=== PATIENT | male | born 1995 | race African-American/Black ===

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

== ENCOUNTER 2017-03-21 20:12 | Emergency (ER) | payer MEDICAID ==
[~2017-03-21] VITALS: Ht 167.6 cm; Wt 63.5 kg
[~2017-03-21 20:12] MED LIST: ACETAMINOPHEN-1 EAC1 ORAL; ALBUTEROL2.5 MG/3 M INH; PREDNISONE20 MG ORAL; PROAIR HFA8.5 GM INH; VENTOLIN HFA18 GM INH
[2017-03-21 20:40] VITALS: BP 118/77
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
[2017-03-21] MEDS ORDERED: Tetanus/Diptheria/Pertussis Vaccine 0.5ml Syr IM ONE (20:45)
[2017-03-21] MEDS ORDERED: Lidocaine 1% Plain 30 ml INJ ONE (21:00)
[2017-03-21 21:01] LABS: EOSINOPHILS % (AUTO) 0.7 % (0.0-3.0); LYMPHOCYTES % (AUTO) 11.4 % (20.0-45.0); MEAN CORPUSCULAR HGB CONC 31.9 G/DL (32.0-36.0); MEAN CORPUSCULAR VOLUME 94 FL (80-99); MEAN PLATELET VOLUME 7.7 FL (6.5-10.1); MONOCYTES % (AUTO) 3.4 % (1.0-10.0); NEUTROPHILS % (AUTO) 83.5 % (45.0-75.0); PLATELET COUNT 168 K/UL (150-450); RED BLOOD COUNT 4.82 M/UL (4.70-6.10); RED CELL DISTRIBUTION WIDTH 11.1 % (11.6-14.8); WHITE BLOOD COUNT 15.9 K/UL (4.8-10.8)
[2017-03-21 21:11] LABS: ANION GAP 7 mmol/L (5-15); CALCIUM 9.1 MG/DL (8.5-10.1); CARBON DIOXIDE 26 MMOL/L (21-32); CHLORIDE 104 MMOL/L (98-107); CREATININE 1.1 MG/DL (0.55-1.30); GLOMERULAR FILTRATION RATE > 60 mL/min (>60); POTASSIUM 5.2 MMOL/L (3.5-5.1); SODIUM 137 MMOL/L (136-145)
[2017-03-21 21:15] LABS: ALANINE AMINOTRANSFERASE 23 U/L (12-78); ASPARTATE AMINO TRANSFERASE 58 U/L (15-37); LIPASE 282 U/L (73-393); TOTAL PROTEIN 7.7 G/DL (6.4-8.2)
[2017-03-21 21:48] LABS: APPEARANCE,URINE CLEAR; KETONES,URINE NEGATIVE (NEGATIVE); LEUKOCYTE ESTERASE ,URINE NEGATIVE (NEGATIVE); NITRITE,URINE NEGATIVE (NEGATIVE); PH,URINE 6 (4.5-8.0); PROTEIN,URINE NEGATIVE (NEGATIVE); UROBILINOGEN,URINE NORMAL MG/DL (0.0-1.0)
[2017-03-21 23:25] VITALS: BP 111/67
--- NOTE | 2017-03-22 09:20 | Diagnostic Imaging Report ---
Indication: Abdominal pain Technique: Continuous helical transaxial imaging of the abdomen and pelvis was obtained from the lung bases to the pubic symphysis during intravenous contrast administration. Coronal 2-D reformats were also obtained. Study obtained in a Siemens sensation [address] Automatic Exposure Control was utilized. Total Dose length Product (DLP): [address] Dose Index Volume (CTDIvol): 0.15, 9.57 mGy Comparison: None Findings: The lung bases are clear. Appendix is absent. No free fluid identified. The bladder is relatively nondistended. No evidence of bowel obstruction or free air. In the pubic region anterior to the right inguinal canal and within the subcutaneous fat just above the penis there is a small focus of air. Suspect is a surgical in nature. Some of the air appears to extend into the visualized part of the right scrotum. Please correlate clinically. Impression: Air noted in the subcutaneous fat right scrotal region and pubic area. Findings presumably on the basis of recent surgery or trauma. Please correlate clinically. Negative examination otherwise. [facility] has communicated the preliminary results to the Emergency Department. Their findings are largely concordant with this report. The CT scanner at [facility] is accredited by the [employer] and the scans are performed using dose optimization techniques as appropriate to a performed exam including Automatic Exposure control.
--- NOTE | 2017-03-22 12:05 | Diagnostic Imaging Report ---
Indication: pain Findings: 3 views of the left hand were obtained. Normal alignment is demonstrated. No acute fractures, erosions, or periosteal reaction are seen. Soft tissues are unremarkable. Impression: No acute findings.
== END 2017-03-21 23:25 | disposition home or self-care (01) ==
LOC: EMR 21:08
DX: S61.211A Laceration without foreign body of left index finger without damage to nail, initial encounter (principal); Y04.0XXA Assault by unarmed brawl or fight, initial encounter; Y92.89 Other specified places as the place of occurrence of the external cause; Z23 Encounter for immunization; R10.32 Left lower quadrant pain; J45.909 Unspecified asthma, uncomplicated; Z91.010 Allergy to peanuts; Z90.49 Acquired absence of other specified parts of digestive tract
CPT/HCPCS: 12001; 36415; 73130; 74177; 80053; 81003; 83690; 85025; 90471; 90715; 99284; J2001; Q9967; Z7502

== ENCOUNTER 2017-05-13 12:51 | Emergency (ER) | payer MEDICAID ==
[~2017-05-13] VITALS: Ht 175.3 cm; Wt 65.8 kg
[2017-05-13] MEDS ORDERED: DiphenhydrAMINE 50mg/ml Inj IM ONE (13:15)
[2017-05-13] MEDS ORDERED: Ketorolac 60mg Inj IM ONE (13:15)
[2017-05-13] MEDS ORDERED: IBUPROFEN600 MG ORAL (14:43)
[2017-05-13 14:50] VITALS: BP 110/78
[2017-05-13 14:55] VITALS: BP 110/78
--- NOTE | 2017-05-13 19:13 | Emergency Room Report ---
History of Present Illness General Chief Complaint: Headache Source: Patient Present Illness HPI The patient is a 21-year-old male who denies any medical history presenting for headache. Pain has been an 8/10 dull ache primarily to the back of his head. Worse with activity. He has not taken any medication for the pain. He denies other symptoms including neck pain or stiffness, fever, chills, cough, blurred vision, dizziness Allergies: Coded Allergies: PEANUT (Verified Allergy, Unknown, 03/21/17) Patient History Past Medical History: see triage record Pertinent Family History: none Reviewed Nursing Documentation: PMH: Agreed, PSxH: Agreed Nursing Documentation-PMH Hx Asthma: Yes Review of Systems All Other Systems: negative except mentioned in HPI Physical Exam Vital Signs Date Time Temp Pulse Resp B/P (MAP) Pulse Ox O2 Delivery O2 Flow Rate FiO2 05/13/17 12:57 98.1 71 20 119/83 97 Room Air Sp02 EP Interpretation: reviewed, normal General Appearance: no apparent distress, alert, GCS 15, non-toxic Head: normocephalic, atraumatic Eyes: bilateral eye normal inspection, bilateral eye PERRL Neck: full range of motion, no bony tend, supple/symm/no masses Respiratory: chest non-tender, lungs clear, normal breath sounds, speaking full sentences Cardiovascular #1: regular rate, rhythm, no edema Musculoskeletal: back normal, gait/station normal, normal range of motion, non- tender Neurologic: alert, oriented x3, responsive, motor strength/tone normal, sensory intact, speech normal Psychiatric: judgement/insight normal, memory normal, mood/affect normal, no suicidal/homicidal ideation Skin: normal color, no rash, warm/dry, well hydrated Medical Decision Making PA Attestation Dr. Johnson is my supervising physician. Patient management was discussed with my supervising physician Diagnostic Impression: Primary Impression: Headache Qualified Codes: R51 - Headache ER Course The patient is a 21-year-old male who denies any medical history presenting for headache. Differential diagnoses include but not limited to Migraine, tension headache, meningitis, AVM, CVA, SAH PE: No apparent distress. PERRL No TTP over maxillary or frontal sinuses. Lungs CTA bilat. No wheezing. No accessory muscle use. Heart: RRR, no abnormal heart sounds Ears: external auditory canal clear. Non erythematous. Bilat TM intact. Cone of light present bilat. No bulging of TM. No serous fluid seen. No tonsillar exudate. Uvula midline.Oropharynx non erythematous Neck soft and supple. FulL AROM intact The patient is given IM Toradol, Zofran, and Benadryl. he states that pain has significantly decreased. He is now more relaxed. He'll be discharged home with similar medication. ER precautions are given Last Vital Signs Date Time Temp Pulse Resp B/P (MAP) Pulse Ox O2 Delivery O2 Flow Rate FiO2 05/13/17 14:55 98.1 80 20 110/78 97 Room Air Status: improved Disposition: HOME, SELF-CARE Condition: Improved Scripts Ibuprofen* (MOTRIN*) 600 Mg Tablet 600 MG ORAL Q8H Y for For Pain, #30 TAB 0 Refills Prov: CLIFF ALBERTO 05/13/17 Referrals: [facility] (PCP) Patient Instructions: General Headache Without Cause Additional Instructions: I discussed my findings with the patient. All questions and concerns have been answered. Treatment and medication compliance have been addressed. I advised the patient that they need to follow up with PMD in 3-5 days. Return to ED if symptoms worsen, new symptoms arise, or if needed for any reason. Patient verbalized understanding of discharge instructions. CLIFF ALBERTO May 13, 2017 19:13
== END 2017-05-13 14:55 | disposition home or self-care (01) ==
LOC: EMR 13:30
DX: R51 Headache (principal); J45.909 Unspecified asthma, uncomplicated; Z91.010 Allergy to peanuts
CPT/HCPCS: 96372; 99283; J1200; J2405

== ENCOUNTER 2017-08-26 00:06 | Emergency (ER) | payer MEDICAID ==
[~2017-08-26] VITALS: Ht 167.6 cm; Wt 77.1 kg
[~2017-08-26 00:06] MED LIST changes: +IBUPROFEN600 MG ORAL
[2017-08-26] MEDS ORDERED: NYSTATIN15 GM TOPIC (01:28)
[2017-08-26] MEDS ORDERED: IBUPROFEN600 MG ORAL (01:28)
[2017-08-26 03:00] VITALS: BP_SYST 135; BP_SYST 145; BP_DIAS 72; BP_DIAS 76
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
== END 2017-08-26 03:01 | disposition home or self-care (01) ==
LOC: EMR 00:30
DX: S09.90XA Unspecified injury of head, initial encounter (principal); N48.1 Balanitis; J45.909 Unspecified asthma, uncomplicated; Z91.010 Allergy to peanuts; W22.09XA Striking against other stationary object, initial encounter; Y92.9 Unspecified place or not applicable
CPT/HCPCS: 70450; 96372; 99284; J0780

== ENCOUNTER 2019-01-05 21:23 | Emergency (ER) | payer MEDICAID ==
[~2019-01-05] VITALS: Ht 177.8 cm; Wt 72.6 kg
[~2019-01-05 21:23] MED LIST changes: +NYSTATIN15 GM TOPIC
--- NOTE | 2019-01-05 21:38 | NUR ---
ED Nurse Note: Pt walked in due to sore throat and difficulty in swallowing. Also c/o right side facial pain jeancarlos goes to ear. AAO x4, and ambulatory and speaks in full sentences.
[2019-01-05] MEDS ORDERED: LIDOCAINE VISC100 ML ORAL (22:06)
[2019-01-05] MEDS ORDERED: AMOXICILLI250 MG/5 M ORAL (22:06)
--- NOTE | 2019-01-05 22:09 | Emergency Room Report ---
History of Present Illness General Chief Complaint: Upper Respiratory Illness Present Illness HPI Patient is 23-year-old male presents after increased sore throat for the past 3 days. Patient reports having some increased difficulty with swallowing. He denies any fever. He reports of increased right-sided ear pain as well as right -sided neck discomfort. He denies any vomiting. He denies any severe pain to his neck. He denies any severe headache. He had not been vomiting. He denies any current cough. Ports smoking marijuana. He denies any recent smoking. Allergies: Coded Allergies: PEANUT (Verified Allergy, Unknown, 03/21/17) Patient History Past Medical History: see triage record Reviewed Nursing Documentation: PMH: Agreed; PSxH: Agreed Nursing Documentation-PMH Hx Asthma: Yes Review of Systems All Other Systems: negative except mentioned in HPI Physical Exam Vital Signs Date Time Temp Pulse Resp B/P (MAP) Pulse Ox O2 Delivery O2 Flow Rate FiO2 01/05/19 21:28 98.4 69 16 107/69 (82) 97 Room Air General Appearance: well appearing, no apparent distress, alert, GCS 15 Head: normocephalic, atraumatic ENT: hearing grossly normal, normal voice, uvula midline, tonsillar swelling, pharyngeal erythema, tonsillar exudate Neck: full range of motion, supple Respiratory: no respiratory distress, speaking full sentences Cardiovascular #1: normal inspection Gastrointestinal: normal inspection, non tender, soft Musculoskeletal: normal inspection Neurologic: normal inspection, alert, oriented x3, responsive, normal gait Psychiatric: mood/affect normal Skin: no rash Medical Decision Making Diagnostic Impression: Primary Impression: Acute tonsillitis ER Course Patient presented for sore throat. Differential diagnosis included but was not limited to meningitis, exudative tonsillitis, retropharyngeal abscess, epiglottitis, strep pharyngitis. Patient has a benign exam and does not appear to require any imaging or laboratory testing at this time. Patient appears to have a bacterial tonsillitis. There is no evidence of abscess. Patient was advised to gargle with salt water. He will be given prescription for oral antibiotics. He was given medication for symptomatic treatment as well. Patient was advised to continue ibuprofen and to follow-up with his primary care physician for recheck in 2 days. Is advised to return if worse. Last Vital Signs Date Time Temp Pulse Resp B/P (MAP) Pulse Ox O2 Delivery O2 Flow Rate FiO2 01/05/19 21:38 72 19 Room Air 01/05/19 21:28 98.4 107/69 (82) 97 Status: improved Disposition: HOME, SELF-CARE Condition: Stable Scripts Amoxicillin* (AMOXICILLIN*) 250 Mg/5 Ml Susp.recon 500 MG ORAL EVERY 8 HOURS for 7 Days, #210 ML Prov: Monty Cole MD 01/05/19 Lidocaine HCl 2% Viscous (Lidocaine HCl 2% Viscous) 100 Ml Solution 15 ML ORAL QID for pain, #120 ML Prov: Monty Cole MD 01/05/19 Patient Instructions: Tonsillitis, [id number] Monty Cole MD Jan 05, 2019 22:09
[2019-01-05 22:15] VITALS: BP 107/69
[2019-01-05] MEDS ORDERED: Lidocaine 2% Visc 15ml soln ORAL ONE (22:15)
--- NOTE | 2019-01-05 22:15 | NUR ---
ER DISCHARGE NOTE: Patient is cleared to be discharged per ERMD, pt is aox4, on room air, with stable vital signs. pt was given dc and prescription instructions, pt was able to verbalize understanding, pt id band removed without complications. pt is able to ambulate with steady gait. pt took all belongings.
== END 2019-01-05 22:15 | disposition home or self-care (01) ==
LOC: EMR 21:48
DX: J03.90 Acute tonsillitis, unspecified (principal); J45.909 Unspecified asthma, uncomplicated; Z91.010 Allergy to peanuts
CPT/HCPCS: 99282

== ENCOUNTER → 2019-06-29 | Emergency (ER) | payer MEDICAID ==
[~2019-06-29] VITALS: Ht 175.3 cm; Wt 77.1 kg
[~2019-06-29] MED LIST changes: +AMOXICILLI250 MG/5 M ORAL; +DOXYCYCLINE MO100 MG ORAL; +LIDOCAINE VISC100 ML ORAL; +Lidocaine 1% MPF 10mg/ml 5ml INJ ONE
[2019-06-29 12:38] VITALS: BP 121/78
--- NOTE | 2019-06-29 12:40 | NUR ---
ED Nurse Note: pt ambulated to ed to be evaluated for std. per pt, he's been having some 'creamy-like' discharge on reproductive area, pt denies pain nor burning sensation upon urination. placed on bed.
--- NOTE | 2019-06-29 13:09 | Emergency Room Report ---
History of Present Illness General Chief Complaint: Male Urogenital Problems Source: Patient Present Illness HPI 23-year-old male presents to the emergency department complaining of recent contact with an STD. Patient reports that his sexual partner was diagnosed with chlamydia 2 days ago. Patient is seeking treatment at this time. He denies penile discharge, dysuria, hematuria, testicular pain or swelling. Patient denies genital lesions/rashes. He denies swollen tender lymph nodes. Patient denies joint pain, abdominal pain, fevers or chills. Patient denies any significant past medical history. No other aggravating or relieving factors at this time. Allergies: Coded Allergies: PEANUT (Verified Allergy, Unknown, 03/21/17) Patient History Past Medical History: see triage record Past Surgical History: none Pertinent Family History: none Reviewed Nursing Documentation: PMH: Agreed; PSxH: Agreed Nursing Documentation-PMH Past Medical History: No Stated History Hx Asthma: Yes Review of Systems All Other Systems: negative except mentioned in HPI Physical Exam Vital Signs Date Time Temp Pulse Resp B/P (MAP) Pulse Ox O2 Delivery O2 Flow Rate FiO2 06/29/19 12:33 98.2 69 18 121/78 (92) 96 Room Air Sp02 EP Interpretation: reviewed, normal General Appearance: no apparent distress, alert, GCS 15, non-toxic Head: normocephalic, atraumatic Eyes: bilateral eye normal inspection, bilateral eye PERRL ENT: hearing grossly normal, normal voice Neck: full range of motion Respiratory: lungs clear, normal breath sounds, speaking full sentences Cardiovascular #1: regular rate, rhythm Gastrointestinal: normal bowel sounds, non tender, soft, non-distended, no guarding Rectal: deferred Genitourinary: no CVA tenderness, deferred Musculoskeletal: normal range of motion, gait/station normal, non-tender Neurologic: alert, motor strength/tone normal, oriented x3, sensory intact, responsive, speech normal Psychiatric: judgement/insight normal Skin: no rash, normal color Lymphatic: no adenopathy Medical Decision Making PA Attestation Dr. Mcclendon Is my supervising Physician whom patient management has been discussed with. Diagnostic Impression: Primary Impression: Contact with or exposure to venereal diseases ER Course 23-year-old male presents to the emergency department complaining of recent contact with an STD. Patient reports that his sexual partner was diagnosed with chlamydia 2 days ago. Patient is seeking treatment at this time. He denies penile discharge, dysuria, hematuria, testicular pain or swelling. Patient denies genital lesions/rashes. He denies swollen tender lymph nodes. Patient denies joint pain, abdominal pain, fevers or chills. Patient denies any significant past medical history. No other aggravating or relieving factors at this time. Ddx considered but are not limited to UTi , Urethritis, LGV, STI, Stone, Cystitis, prostatitis Vital signs: are WNL, pt. is afebrile H&PE are most consistent with Urethritis ORDERS: - None at this time as pt. sexual partner is positive for chlamydia and is currently on treatment. ED INTERVENTIONS: -250mg Rocephin IM DISCHARGE: At this time pt. is stable for d/c to home. Will provide printed patient care instructions, and any necessary prescriptions. Care plan and follow up instructions have been discussed with the patient prior to discharge. Last Vital Signs Date Time Temp Pulse Resp B/P (MAP) Pulse Ox O2 Delivery O2 Flow Rate FiO2 06/29/19 12:38 98.2 18 121/78 96 Room Air 06/29/19 12:33 69 Disposition: HOME, SELF-CARE Condition: Stable Scripts Doxycycline Monohydrate* (DOXYCYCLINE MONOHYDRATE*) 100 Mg Capsule 100 MG ORAL TWICE A DAY for 7 Days, #14 CAP 0 Refills Prov: Fabienne Theodore 06/29/19 Patient Instructions: Chlamydia, Male Additional Instructions: Take medications as directed. Follow up with a Primary Care Provider in 3-5 days, even if your symptoms have resolved. Return sooner to ED if new symptoms occur, or current symptoms become worse. - Please note that this Emergency Department Report was dictated using [employer] Technology[employer]conciliation clerk technology software, occasionally this can lead to erroneous entry secondary to interpretation by the dictation equipment. Fabienne Theodore Jun 29, 2019 13:09
[2019-06-29 13:57] VITALS: BP 121/78
--- NOTE | 2019-06-29 13:57 | NUR ---
ER DISCHARGE NOTE: Patient is cleared to be discharged per ERPA, pt is aox4, on room air, with stable vital signs. pt was given dc and prescription instructions, pt was able to verbalize understanding, pt id band removed. pt is able to ambulate with steady gait. pt took all belongings.
== END | disposition home or self-care (01) ==
LOC: EMR 12:45
DX: Z20.2 Contact with and (suspected) exposure to infections with a predominantly sexual mode of transmission (principal); J45.909 Unspecified asthma, uncomplicated; Z91.010 Allergy to peanuts
CPT/HCPCS: 96372; J0696; Z7502; 99283

== ENCOUNTER 2019-08-20 02:06 | Emergency (ER) | payer MEDICAID ==
[~2019-08-20] VITALS: Ht 170.2 cm; Wt 78.5 kg
[~2019-08-20 02:06] MED LIST changes: -Lidocaine 1% MPF 10mg/ml 5ml INJ ONE
[2019-08-20 02:23] VITALS: BP 124/68
[2019-08-20] MEDS ORDERED: Acetaminophen 500mg (ES) tab ORAL ONE (02:30)
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
[2019-08-20] MEDS ORDERED: ACETAMINOPHEN325 M1 ORAL (03:29)
--- NOTE | 2019-08-20 03:30 | Diagnostic Imaging Report ---
EXAM: CT Head Without Intravenous Contrast CLINICAL HISTORY: INJ TECHNIQUE: Axial computed tomography images of the head/brain without intravenous contrast. CTDI is 53 mGy and DLP is 1072 mGy-cm. One or more of the following dose reduction techniques were used: automated exposure control, adjustment of the mA and/or kV according to patient size, use of iterative reconstruction technique. COMPARISON: CT head dated 08/26/17. FINDINGS: Brain: Unremarkable. No hemorrhage. No significant white matter disease. No edema. Ventricles: Unremarkable. No ventriculomegaly. Bones/joints: Unremarkable. No acute fracture. Soft tissues: There is focal soft tissue edema in the anterior scalp. Sinuses: There is mucosal thickening in the ethmoid sinus. Mastoid air cells: Unremarkable as visualized. No mastoid effusion. IMPRESSION: 1. No acute intracranial hemorrhage. 2. Soft tissue edema in the anterior scalp.
--- NOTE | 2019-08-20 03:32 | Diagnostic Imaging Report ---
EXAM: XR Left Foot Complete, 3 or More Views CLINICAL HISTORY: INJ TECHNIQUE: Frontal, lateral and oblique views of the left foot. COMPARISON: No relevant prior studies available. FINDINGS: Bones/joints: Unremarkable. No acute fracture. No dislocation. Soft tissues: Unremarkable. No radiopaque foreign body. IMPRESSION: No acute fracture.
[2019-08-20 03:35] VITALS: BP 124/68
== END 2019-08-20 03:35 | disposition home or self-care (01) ==
LOC: EMR 02:55
DX: S09.90XA Unspecified injury of head, initial encounter (principal); S06.0X9A Concussion with loss of consciousness of unspecified duration, initial encounter; S90.812A Abrasion, left foot, initial encounter; S00.81XA Abrasion of other part of head, initial encounter; V43.62XA Car passenger injured in collision with other type car in traffic accident, initial encounter; Y92.410 Unspecified street and highway as the place of occurrence of the external cause; R51 Headache; Z90.89 Acquired absence of other organs; Z91.010 Allergy to peanuts; R60.0 Localized edema
CPT/HCPCS: 70450; 73630; Z7502; 99284

== ENCOUNTER 2019-09-28 01:30 | Emergency (ER) | payer MEDICAID ==
[~2019-09-28] VITALS: Ht 175.3 cm; Wt 78.5 kg
[~2019-09-28 01:30] MED LIST changes: +ACETAMINOPHEN325 M1 ORAL
[2019-09-28 01:40] VITALS: BP 126/83
--- NOTE | 2019-09-28 01:40 | NUR ---
ED Nurse Note: Pt walked into ED for c/o sore throat x 3 days. Pt is breathing normal and unlabored, NAD. Pt is aaox4 and ambulatory with steady gait.
[2019-09-28] MEDS ORDERED: HYDROcodone/Acetamin 5/325 tab ORAL ONE (01:45)
[2019-09-28] MEDS ORDERED: Augmentin 875mg Tab ORAL ONE (01:45)
[2019-09-28] MEDS ORDERED: AUGMENTIN 875-1 EAC1 ORAL (01:48)
[2019-09-28] MEDS ORDERED: HYDROCODON-ACE1 EA15 ORAL (01:48)
[2019-09-28] MEDS ORDERED: IBUPROFEN600 M1 ORAL (01:48)
--- NOTE | 2019-09-28 01:48 | Emergency Room Report ---
History of Present Illness General Chief Complaint: Sore Throat Source: Patient Present Illness HPI This a 23-year-old male with no past medical history presents with chief plaint of sore throat. Onset for last 2 days. No fever. No cough congestion or URI symptoms. Pain is 9 out of 10. Worse with swallowing. Unable to sleep because of the pain. History of strep throat and this feels the same way. Allergies: Coded Allergies: PEANUT (Verified Allergy, Unknown, 03/21/17) COVID-19 Screening Contact w/high risk pt: No Recent Travel to affected area: No Experienced COVID-19 symptoms?: No COVID-19 Testing performed ELECTRICAL SUPERINTENDENT: No Patient History Past Medical History: see triage record, old chart reviewed Past Surgical History: none Pertinent Family History: none Social History: Denies: smoking Immunizations: other Reviewed Nursing Documentation: PMH: Agreed; PSxH: Agreed Nursing Documentation-PMH Past Medical History: No History, Except For Hx Asthma: Yes Review of Systems Eye: Denies: eye pain, blurred vision ENT: Reports: throat pain; Denies: ear pain, nose congestion, throat swelling Respiratory: Denies: cough, shortness of breath Cardiovascular: Denies: chest pain, palpitations Gastrointestinal: Denies: abdominal pain, diarrhea, nausea, vomiting Musculoskeletal: Denies: back pain, joint pain Skin: Denies: rash Neurological: Denies: headache, numbness Endocrine: Denies: increased thirst, increased urine Hematologic/Lymphatic: Denies: easy bruising All Other Systems: negative except mentioned in HPI Physical Exam Vital Signs Date Time Temp Pulse Resp B/P (MAP) Pulse Ox O2 Delivery O2 Flow Rate FiO2 09/28/19 01:32 98.4 84 18 126/83 (97) 95 Room Air Vitals normal Sp02 EP Interpretation: reviewed, normal General Appearance: well appearing, no apparent distress, alert Head: normocephalic, atraumatic Eyes: bilateral eye PERRL, bilateral eye EOMI ENT: hearing grossly normal, tonsillar swelling, pharyngeal erythema Neck: full range of motion, supple, no meningismus Respiratory: chest non-tender, lungs clear, normal breath sounds Cardiovascular #1: regular rate, rhythm, no murmur Gastrointestinal: normal bowel sounds, non tender, no mass, no organomegaly, no bruit, non-distended Musculoskeletal: back normal, normal range of motion, gait/station normal Psychiatric: mood/affect normal Medical Decision Making Diagnostic Impression: Primary Impression: Pharyngitis, acute Qualified Codes: J02.9 - Acute pharyngitis, unspecified ER Course Patient presents with acute pharyngitis/tonsillitis. Most likely strep. No evidence of peritonsillar abscess, retropharyngeal abscess or Tj angina. Will discharge home with antibiotics. Last Vital Signs Date Time Temp Pulse Resp B/P (MAP) Pulse Ox O2 Delivery O2 Flow Rate FiO2 09/28/19 01:32 98.4 84 18 126/83 (97) 95 Room Air Status: improved Disposition: HOME, SELF-CARE Condition: Stable Scripts Ibuprofen* (MOTRIN*) 600 Mg Tablet 600 MG ORAL Q6H PRN for For Pain, #30 TAB 0 Refills Prov: Mejia Kong MD 09/28/19 Hydrocodone/Acetaminophen 5-325* (HYDROCODONE/ACETAMINOPHEN 5-325*) 1 Each Tablet 1 TAB ORAL Q6H PRN for For Pain, #15 TAB 0 Refills Prov: Mejia Kong MD 09/28/19 Amoxicillin/Potassium Clav 875-125* (AUGMENTIN 875-125 TABLET*) 1 Each Tablet 1 TAB ORAL TWICE A DAY, #14 TAB Prov: Mejia Kong MD 09/28/19 Patient Instructions: Strep Throat Additional Instructions: Increase fluids. Salt water gargle. Follow-up with your doctor in 7 days for recheck. Return if worse. Mejia Kong MD September 28, 2019 01:48
--- NOTE | 2019-09-28 01:50 | NUR ---
ED Nurse Note: Pt dropped 1 20mg prednisone pill on the floor, medication contaminated. Override 20mg prednisone in pyxis.
[2019-09-28 01:55] VITALS: BP 126/83
--- NOTE | 2019-09-28 01:55 | NUR ---
ER DISCHARGE NOTE: Patient is cleared to be discharged per ERMD, pt is aox4, on room air, with stable vital signs. pt was given dc and prescription instructions, pt was able to verbalize understanding, pt id band removed. pt is able to ambulate with steady gait. pt took all belongings.
== END 2019-09-28 01:55 | disposition home or self-care (01) ==
LOC: EMR 01:45
DX: J02.9 Acute pharyngitis, unspecified (principal); J45.909 Unspecified asthma, uncomplicated; Z91.010 Allergy to peanuts
CPT/HCPCS: J7512; Z7502; 99282